=== PATIENT | female | born 2000 | race Caucasian/White ===

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

== ENCOUNTER 2022-01-02 14:36 | Emergency (ER) | payer MEDICAID ==
[~2022-01-02] VITALS: Ht 160 cm; Wt 61.4 kg
[~2022-01-02 14:36] MED LIST changes: +DOXYCYCLINE HY100 MG PO
[2022-01-02 14:54] VITALS: BP 151/84; TEMP 98.8
[2022-01-02] MEDS ORDERED: NORCO 325 MG-51 TAB PO (15:45)
[2022-01-02 16:03] VITALS: PULSE 85
== END 2022-01-02 16:03 | disposition home or self-care (01) ==
LOC: COL.ER 14:36
DX: S62.306A Unspecified fracture of fifth metacarpal bone, right hand, initial encounter for closed fracture (principal); F17.200 Nicotine dependence, unspecified, uncomplicated; W22.01XA Walked into wall, initial encounter